=== PATIENT | male | born 1970 | race Caucasian/White ===

== ENCOUNTER 2017-02-26 07:20 | Day surgery (SDC) | payer OTHER, MEDICARE ==
[~2017-02-26] VITALS: Ht 177.8 cm; Wt 108.8 kg
[~2017-02-26 07:20] MED LIST: HEPARIN 1,000 UNITS/ML, 10ML ONE; PROTAMINE SULFATE 10 MG/ML, 5ML ONE; THROMBIN 5,000 UNIT VIAL TP ONE
[2017-02-26] MEDS ORDERED: SODIUM CHLORIDE 0.9% 1,000 ML IV SCH (07:57)
[2017-02-26 07:58] VITALS: BP 157/94
[2017-02-26 07:59] VITALS: BP 157/94
[2017-02-26] MEDS ORDERED: LIDOCAINE 1%, 2ML SQ PRN (08:00)
[2017-02-26] MEDS ORDERED: LIDOCAINE 1%, 2ML ONE (08:04)
[2017-02-26] MEDS ORDERED: SEVE800T7 PO (08:18)
[2017-02-26] MEDS ORDERED: ALLO100T30 PO (08:18)
[2017-02-26] MEDS ORDERED: AMLO5TAB2 PO (08:18)
[2017-02-26] MEDS ORDERED: ATOR40TA78 PO (08:18)
[2017-02-26] MEDS ORDERED: SODI650T PO (08:18)
[2017-02-26] MEDS ORDERED: FENTANYL PF 100 MCG/2ML ONE (08:41)
[2017-02-26] MEDS ORDERED: MIDAZOLAM 1 MG/ML, 2ML ONE (08:41)
[2017-02-26] MEDS ORDERED: LIDOCAINE-MPF 2% ,5ML ONE (08:42)
[2017-02-26] MEDS ORDERED: PROPOFOL 10 MG/ML, 20ML ONE (08:42)
[2017-02-26] MEDS ORDERED: CEFAZOLIN 1,000 MG ONE (09:08)
[2017-02-26] MEDS ORDERED: NEOSTIGMINE 1 MG/ML, 10ML ONE (09:08)
[2017-02-26] MEDS ORDERED: DEXAMETHASONE 4 MG/ML, 1ML ONE ×2 (09:16)
[2017-02-26] MEDS ORDERED: HYDROmorphone 2 MG/ML, 1ML ONE (09:22)
[2017-02-26] MEDS ORDERED: OXYcodone 5 MG/5 ML ORAL.SOL UDC PO PRN (09:30)
[2017-02-26] MEDS ORDERED: MEPERIDINE/PF 25MG/0.5ML IVPush PRN (09:30)
[2017-02-26] MEDS ORDERED: LABETALOL 5MG/ML, 20ML IV PRN (09:30)
[2017-02-26] MEDS ORDERED: FENTANYL PF 100 MCG/2ML IV PRN (09:30)
[2017-02-26] MEDS ORDERED: ONDANSETRON 2MG/ML, 2ML IVPush PRN (09:30)
[2017-02-26] MEDS ORDERED: HYDROmorphone 1 MG/ML, 1ML IV PRN (09:30)
[2017-02-26] MEDS ORDERED: hydrALAzine 20 MG/ML, 1ML IV PRN (09:30)
[2017-02-26] MEDS ORDERED: PROMETHAZINE 25 MG/ML, 1ML IV PRN (09:30)
[2017-02-26] MEDS ORDERED: ONDANSETRON 2MG/ML, 2ML ONE ×2 (09:31→09:32)
[2017-02-26] MEDS ORDERED: hydrALAzine 20 MG/ML, 1ML ONE (10:07)
[2017-02-26] MEDS ORDERED: HEPARIN 5,000 UNITS/ML, 1ML ONE (11:14)
== END 2017-02-26 12:45 ==
LOC: OUT 07:20
PROVIDERS: ATTEND Surgery Vascular Surgery
DX: I12.0 Hypertensive chronic kidney disease with stage 5 chronic kidney disease or end stage renal disease (principal); N18.6 End stage renal disease
CPT/HCPCS: 36415; 36821; 80047; 85610; 85730; 93005; J0360; J0690; J1100; J1170; J1644; J2250; J2405; J2704; J2710; J3010; J3490; J2720